=== PATIENT | male | born 1985 | race Caucasian/White ===

== ENCOUNTER 2019-08-12 11:35 | Emergency (ER) | payer MEDICAID ==
[~2019-08-12] VITALS: Ht 177.8 cm; Wt 120.2 kg
[2019-08-12 11:40] VITALS: Ht 177.8 cm; Wt 120.2 kg
[2019-08-12 12:16] LABS: BASOPHIL % 0.5 % (0-2); PLATELET COUNT 325 x10^3mcL (130-400); RED CELL DISTRIBUTION WIDTH 13.1 % (11.5-14.5)
[2019-08-12 12:18] LABS: CALCIUM 9.5 mg/dL (8.5-10.1); CARBON DIOXIDE 28.5 mmol/L (21-32); CHLORIDE SERUM 104 mmol/L (98-107); CREATININE SERUM 0.9 mg/dL (0.7-1.3); GFR1 > 60 mL/min; GLUCOSE SERUM 108 mg/dL (74-106); POTASSIUM SERUM 4.1 mmol/L (3.5-5.1); SODIUM SERUM 139 mmol/L (136-145)
[2019-08-12 12:19] LABS: ALBUMIN 3.8 g/dL (3.4-5.0)
[2019-08-12 12:36] LABS: ALKALINE PHOSPHATASE 91 U/L (46-116); ALT/SGPT 95 U/L (16-63); AST/SGOT 29 U/L (15-37); BILIRUBIN TOTAL 0.3 mg/dL (0.20-1.00); TOTAL PROTEIN, SERUM 8.1 g/dL (6.4-8.2)
[2019-08-12 14:21] VITALS: BP 151/98
== END 2019-08-12 14:17 | disposition home or self-care (01) ==
LOC: ED 11:35
DX: R10.33 Periumbilical pain (principal); R14.0 Abdominal distension (gaseous); K21.9 Gastro-esophageal reflux disease without esophagitis
CPT/HCPCS: 36415; J1885